=== PATIENT | female | born 1980 | race Caucasian/White ===

== ENCOUNTER → 2019-02-12 07:51 | Outpatient (CLI) | payer MEDICAID, SELFPAY ==
--- NOTE | 2019-02-12 07:53 | US_ITS ---
PROCEDURE: US GALLBLADDER CLINICAL INDICATION: abdominal pain Right upper quadrant pain with nausea and vomiting COMPARISON: No exams were available for comparison FINDINGS: Pancreas: Unremarkable/Not well seen Liver: Unremarkable. There is appropriate direction of blood flow within a non dilated portal vein. Right kidney: Unremarkable appearing. No hydronephrosis. Gallbladder: No stones are evident. There is no gallbladder wall thickening. Common duct is normal in diameter. There are few specular echoes within the gallbladder which may be due to some mild sludge. This is of questionable clinical significance. IMPRESSION: No gallstones apparent. Small amount of concentrated bile or sludge noted in the gallbladder. Questionable clinical significance Dictated by: Suleman Britt MD 02/12/2019 20:30 Electronically signed by Suleman Britt MD in [place] 02/12/2019 20:30
[2019-02-12 09:37] LABS: Basophils % 0.4 % (0.1-2.0); Eosinophils # 0.1 K/mm3 (0.0-0.4); Eosinophils % 1.3 % (0.1-12.0); Hematocrit 43.4 % (37.0-47.0); Hemoglobin 14.2 g/dL (12.2-16.2); Lymphocytes # 1.3 K/mm3 (0.7-4.5); Lymphocytes % 25.2 % (10-50); Mean Corpuscular HGB Conc 32.8 g/dL (31.8-35.4); Mean Corpuscular Hemoglobin 30.4 pg (27.0-31.2); Mean Corpuscular Volume 92.7 fl (81-99); Mean Platelet Volume 8.4 fl (7.4-10.4); Monocytes # 0.3 K/mm3 (0.1-1.0); Monocytes % 5.2 % (1.7-9.3); Neutrophils # 3.6 K/mm3 (1.8-7.8); Platelet Count 183 K/mm3 (142-424); Red Blood Count 4.68 M/mm3 (4.20-5.40); Red Cell Distribution Width 12.6 % (11.5-17.5); White Blood Count 5.3 K/mm3 (4.8-10.8)
[2019-02-12 10:22] LABS: Alanine Aminotransferase 28 U/L (12-78); Albumin/Globulin Ratio 1.3 (1.1-1.8); Alkaline Phosphatase 73 U/L (46-116); Amylase 69 U/L (25-115); Anion Gap 14.4 mEq/L (5-15); Aspartate Amino Transferase 26 U/L (15-37); Bilirubin,Total 0.5 mg/dL (0.2-1.0); Blood Urea Nitrogen 15 mg/dL (7-18); Calcium 9.3 mg/dL (8.5-10.1); Carbon Dioxide 27 mmol/L (21.0-32.0); Chloride 103 mmol/L (98-107); Creatinine,Serum 0.79 mg/dL (0.55-1.02); Estimated Glomerular Filt Rate 81 ml/min (>60); GFR (African American) 98 ML/MIN (>60); Glucose 103 mg/dL (74-106); Lipase 160 u/L (73-393); Potassium 4.4 mmoL/L (3.5-5.1); Sodium 140 mmol/L (136-145)
== END ==
PROVIDERS: PCP Internal Medicine Adolescent Medicine; Visit Provider Surgery
DX: K82.9 Disease of gallbladder, unspecified (principal)
CPT/HCPCS: 36415; 76705; 80053; 82150; 83690; 85025

== ENCOUNTER → 2019-02-12 08:48 | Outpatient (CLI) | payer MEDICAID, SELFPAY | PROVIDERS: Visit Provider Surgery | DX: R10.84 Generalized abdominal pain (principal) | CPT/HCPCS: 36415; 80053; 82150; 83690; 85025 ==

== ENCOUNTER → 2019-06-29 11:40 | Outpatient (CLI) | payer OTHER, SELFPAY ==
--- NOTE | 2019-06-29 11:50 | XR_ITS ---
PROCEDURE: XR CHEST 2V CLINICAL HISTORY: COUGH COMPARISON: No exams were available for comparison FINDINGS: The cardiomediastinal silhouette and pulmonary vascularity are within normal limits. The lungs are clear without infiltrates, suspicious nodules, or pleural effusions. There is calcified granuloma in the left upper lobe. No acute bony findings. IMPRESSION: No acute findings. Dictated by: Suleman Britt MD 06/29/2019 12:17 Electronically signed by Suleman Britt MD in [place] 06/29/2019 12:17
[2019-06-29 12:34] LABS: Anion Gap 13.2 mEq/L (5-15); Blood Urea Nitrogen 13 mg/dL (7-18); Calcium 8.8 mg/dL (8.5-10.1); Carbon Dioxide 29 mmol/L (21.0-32.0); Chloride 107 mmol/L (98-107); Creatinine,Serum 0.87 mg/dL (0.55-1.02); Estimated Glomerular Filt Rate 72 ml/min (>60); GFR (African American) 87 ML/MIN (>60); Glucose 93 mg/dL (74-106); Potassium 4.2 mmoL/L (3.5-5.1); Sodium 145 mmol/L (136-145)
[2019-06-29 12:47] LABS: Basophils % 0.5 % (0.1-2.0); Eosinophils # 0.5 K/mm3 (0.0-0.4); Eosinophils % 5.9 % (0.1-12.0); Hematocrit 42.4 % (37.0-47.0); Lymphocytes # 1.6 K/mm3 (0.7-4.5); Lymphocytes % 18.4 % (10-50); Mean Corpuscular Hemoglobin 29.7 pg (27.0-31.2); Mean Corpuscular Volume 89.9 fl (81-99); Monocytes # 0.4 K/mm3 (0.1-1.0); Monocytes % 4.8 % (1.7-9.3); Neutrophils # 6.2 K/mm3 (1.8-7.8); Neutrophils % 70.4 % (37.0-80.0); Platelet Count 213 K/mm3 (142-424); Red Blood Count 4.72 M/mm3 (4.20-5.40); Red Cell Distribution Width 13.5 % (11.5-17.5); White Blood Count 8.8 K/mm3 (4.8-10.8)
[2019-07-01 10:48] LABS: Immunoglobulin A, Qn 161 mg/dL (87-352)
[2019-07-03 11:27] LABS: Immunoglobulin E, Total 14 IU/mL (6-495)
== END ==
PROVIDERS: Visit Provider Nurse Practitioner Family
DX: R05 Cough (principal); J30.9 Allergic rhinitis, unspecified; J32.9 Chronic sinusitis, unspecified
CPT/HCPCS: 36415; 71046; 80048; 82784; 82785; 85025

== ENCOUNTER 2019-10-12 13:16 | Emergency (ER) | payer OTHER, SELFPAY ==
[2019-10-12 13:26] VITALS: BP 112/86; PULSE 66; RESP 18; TEMP 36.8; O2SAT 98; BMI 23.8
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
--- NOTE | 2019-10-12 13:32 | PC.NURSE ---
NOTIFIED RAD OF FOOT XRAY
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
[2019-10-12 14:05] VITALS: BP 112/86; PULSE 66; RESP 18; TEMP 36.8; O2SAT 98
== END 2019-10-12 14:06 | disposition home or self-care (01) ==
PROVIDERS: Emergency Provider Family Medicine; PCP Internal Medicine Adolescent Medicine
DX: S92.401A Displaced unspecified fracture of right great toe, initial encounter for closed fracture (principal); W22.8XXA Striking against or struck by other objects, initial encounter; Y92.89 Other specified places as the place of occurrence of the external cause
CPT/HCPCS: 73630; 99282

== ENCOUNTER → 2019-12-09 13:30 | Outpatient (CLI) | payer OTHER, SELFPAY ==
--- NOTE | 2019-12-09 13:36 | XR_ITS ---
PROCEDURE: XR FOOT LT MIN 3V CLINICAL INDICATION: Pain following injury COMPARISON: XR FOOT RT MIN 3V from 10/12/2019 FINDINGS: No fracture or dislocation. No lytic or blastic change. There is normal mineralization. The joint spaces are well-preserved. No significant degenerative/arthritic changes. No erosive changes evident. Other findings:None. IMPRESSION: No acute findings. Dictated by: Suleman Britt MD 12/09/2019 15:25 Electronically signed by Suleman Britt MD in [place] 12/09/2019 15:25
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
== END ==
PROVIDERS: PCP Nurse Practitioner Family; Visit Provider Nurse Practitioner Family
DX: M25.572 Pain in left ankle and joints of left foot (principal); G89.11 Acute pain due to trauma
CPT/HCPCS: 73610; 73630

== ENCOUNTER → 2020-03-19 12:23 | Outpatient (CLI) | payer OTHER, SELFPAY ==
[2020-03-19 14:05] LABS: Coronavirus 19 IgG Antibody Negative (Negative); Coronavirus 19 IgM Antibody Negative (Negative)
== END ==
PROVIDERS: Visit Provider Internal Medicine Gastroenterology
DX: Z01.818 Encounter for other preprocedural examination (principal); Z13.810 Encounter for screening for upper gastrointestinal disorder
CPT/HCPCS: 36415; 86328

== ENCOUNTER 2020-03-21 07:47 | Day surgery (SDC) | payer OTHER, SELFPAY ==
[2020-03-21] VITALS (7 sets, daily range): BP systolic 84–103; BP diastolic 46–65; PULSE 53–68; RESP 16–18; TEMP 36.5–36.8; O2SAT 97–100; BMI 23.6
[2020-03-21 08:05] LABS: Urine Pregnancy, HCG Qual. Negative (Negative)
--- NOTE | 2020-03-21 08:26 | HMH.ANESCL ---
[facility] Anesthesia Checklist - Patient Identification Patient Identification: Arm Band, Verbal (Name & ) - Structural Data Admitted From: Home Planned Operative Procedure/s: EGD and Colonoscopy Consent for Planned Operative Procedure(s) Verified: Yes Verified Documents: Surgical Consent, History and Physical - NPO Status Verified Time NPO: 00:00 - Chart Verification Results Verified: HCG - Additional verifications Patient : No Anesthesia Reactions: No - Airway Assessment C-Spine Mobility Assessed: Yes TMJ Mobility Assessed: Yes Dentition: Good Dentition (missing teeth) - Neurological Assessment Level of Consciousness: Awake, Alert, Appropriate, Follows Commands Hx Seizures: No Numbness or tingling in extremities: No - Anesthesia Plan Anesthesia Risk discussed: Yes Anesthesia Plan: Verified ASA Class: II Anesthesia Type: MAC [facility] History I have reviewed the patient's past medical history: Yes Medical History: Reports:: Anxiety Denies:: Cancer, Diabetes Mellitus Type 1, Diabetes Mellitus Type 2, Internal Pacemaker, MRSA, Seizures *Have you ever received a pneumonia vaccine?: No *Have you received a flu vaccine this season?: Yes Anesthesia experience/problems:: No prior complications Other Surgeries: Yes: Other (lumbar sx). No: Pacemaker Amputation: No Fractures: No - *Social History Last grade of school completed: High school graduate Smoking Status: Never smoker Alcohol Intake: current Alcohol Intake Frequency:: a few times a week Substance Use Type: denies use *Occupational Status:: employed Housing: house Household Members: children *Travel in the last 8 weeks: None Family Hx:: Cancer
--- NOTE | 2020-03-21 08:31 | HMH.PROC ---
[facility] Procedure Note Procedure Note:: Upper Endoscopy Procedure Report: Esophagogastroduodenoscopy with cold biopsies Endoscopost: Saw Bianchi II, MD Referring Physician: Ranjith Ohara M.D./Sven Thomson M.D. Date of Procedure: March 21, 2020 Equipment: Olympus GIF 180 standard upper endoscope Sedation: MAC sedation Indications: Mrs. Dugan is a 40-year-old female with nausea and dyspepsia. She has epigastric and some generalized abdominal pain and discomfort. She reports bloating, belching and early satiety. She has had digestive difficulties with dyspepsia for most of her life. 17 years ago she did have an upper endoscopy followed by a HIDA scan. She was told that she had a nonfunctioning gallbladder but nothing was done at that time. She does state that her paternal aunt had stomach cancer. The patient does get some intermittent right upper quadrant abdominal pain. She reports no significant heartburn, reflux, globus or dysphagia. She does report alternating IBS with both constipation followed by diarrhea. She did have a recent ultrasound showing some gallbladder sludge and steatosis. Procedure: Prior to the procedure, a history and physical exam was performed, and patient's medications and allergies were reviewed. The risks, benefits and alternatives of the sedation and procedure were discussed with the patient. All questions were answered and informed consent was obtained. The patient was brought to the procedure room. Patient identification and proposed procedure were verified by the physician and the nurse. The patient was placed in a left lateral decubitus position and the scope was passed under direct vision. Throughout the procedure, the patient's blood pressure, pulse, and oxygen saturations were monitored continuously. The upper GI endoscopy was accomplished without difficulty. The patient tolerated the procedure well. Findings: The scope was passed directly into the upper esophagus and advanced to the third portion of the duodenum. The post bulbar duodenum and duodenal bulb were normal with normal mucosa and conniventes. Cold biopsies were taken from the post bulbar duodenum to rule out celiac disease. The scope was withdrawn through a normal duodenal bulb and pylorus into the stomach. There was some linear erythema of the antrum and body consistent with reactive gastropathy. The remainder of the antrum, body and fundus of the stomach were grossly normal. Upon retroflexion there was a 2 cm hiatal hernia. 2 biopsies were taken in the antrum and along the lesser curvature for histology to rule out gastritis and/or H pylori. The scope was then withdrawn into the esophagus. There was no evidence of reflux esophagitis. There was a single tongue of salmon-colored mucosa that was biopsied to rule out intestinal metaplasia. There were some tertiary contractions and mild esophageal dysmotility. The remainder of the esophageal mucosa was normal. Impression: 1. Nonerosive GERD with mild esophageal dysmotility and small 2 cm hiatal hernia 2. Linear reactive gastropathy Plan: I will follow-up the biopsies. The patient does have functional dyspepsia and functional bowel disease. This is associated with her alternating IBS with visceral sensitivity. We will discuss additional dietary measures and treatment options. I will proceed with diagnostic colonoscopy.
--- NOTE | 2020-03-21 08:58 | HMH.PROC ---
[facility] Procedure Note Procedure Note:: Colonoscopy Procedure Report: Colonoscopy Endoscopist: Saw Bianchi II, MD Referring physician: Ranjith Ohara MD/Sven Thomson M.D. Date of Procedure: March 21, 2020 Equipment: Olympus 180 variable stiffness pediatric colonoscope Sedation: MAC sedation Indication: Mrs. Dugan is a 40-year-old female with nausea and dyspepsia. She has had bowel irregularity with constipation alternating with diarrhea. She also reports some bright red blood on the toilet tissue when wiping that occurs several days of the month. She does report some generalized abdominal pain and discomfort and this has been longstanding. She also states that her paternal grandfather had colon cancer and possibly colitis. She reports no weight loss. This is her first colonoscopy. Procedure: Prior to the procedure, a history and physical exam was performed, and patient's medications and allergies were reviewed. The risks, benefits and alternatives of the sedation and procedure were discussed with the patient. All questions were answered and informed consent was obtained. The patient was brought to the procedure room. Patient identification and proposed procedure were verified by the physician and the nurse. The patient was placed in a left lateral decubitus position and the scope was passed under direct vision. Throughout the procedure, the patient's blood pressure, pulse, and oxygen saturations were monitored continuously. The colonoscopy was accomplished without difficulty. The patient tolerated the procedure well. Findings: On digital rectal examination there was normal rectal tone. There were no external hemorrhoids. The colonoscope was introduced through the anal canal to the rectum and advanced to the cecum. The ileocecal valve and appendiceal orifice were identified. The scope was advanced a short distance into the ileum which appeared grossly normal. The scope was then withdrawn into the colon. There was some colonic tortuosity/redundancy consistent with some colonic dysmotility. The cecum, ascending, transverse, descending, sigmoid and rectum were otherwise grossly normal. There were no mucosal abnormalities identified. Upon retroflexion within the rectum there were grade 1 internal hemorrhoids.The preparation was excellent throughout with [place] Preparation Score of 9. The cecal time was 12 minutes. Impression: 1. Normal colonoscopy with intubation of the terminal ileum 2. Grade 1 internal hemorrhoids Plan: The patient does have IBS/functional intestinal disorder. I do suspect that she may have some hepatic flexure syndrome causing some of her right upper quadrant abdominal discomfort. I would strongly encourage dietary measures and fiber bowel regimen. I am going to have her do C 13 sucrose breath testing. We will discuss additional treatment options. The patient will not require screening/surveillance colonoscopy again for 10 years.
== END 2020-03-21 10:00 | disposition home or self-care (01) ==
LOC: OUTP 07:49
PROVIDERS: PCP Internal Medicine Adolescent Medicine; Visit Provider Internal Medicine Gastroenterology
PROC: 0DJ08ZZ Inspection of Upper Intestinal Tract, Via Natural or Artificial Opening Endoscopic (ICD-10-PCS; CPT 43235; principal; 2020-03-21 09:00)
DX: K64.0 First degree hemorrhoids; K21.9 Gastro-esophageal reflux disease without esophagitis; K22.4 Dyskinesia of esophagus; K31.9 Disease of stomach and duodenum, unspecified; K44.9 Diaphragmatic hernia without obstruction or gangrene; F41.9 Anxiety disorder, unspecified; Z79.899 Other long term (current) drug therapy
CPT/HCPCS: 43239; 45378; 81025

== ENCOUNTER 2020-03-26 11:19 | Emergency (ER) | payer OTHER, SELFPAY ==
[2020-03-26 11:45] VITALS: BP 120/64; PULSE 71; RESP 20; O2SAT 100; BMI 23.6
--- NOTE | 2020-03-26 11:57 | HMH.EDUTC ---
[facility] [place] Disposition Clinical Impression: Exposure to COVID-19 virus Pharyngitis Qualifiers: Pharyngitis/tonsillitis etiology: unspecified etiology Qualified Code(s): J02.9 - Acute pharyngitis, unspecified Disposition: Home, Self-Care Condition on Discharge: Good Instructions: Preventing the Spread of Coronavirus Discharge Instructions Additional Instructions: Drink plenty of fluids. Take tylenol for pain or fever. Take the medications as directed. Follow up with your regular doctor. GO TO THE ER FOR ANY WORSENING SYMPTOMS FOLLOW THE DIRECTIONS ON THE COVID-19 HAND OUT THAT WE GAVE YOU REGARDING SELF-ISOLATION UNTIL YOU KNOW YOUR COVID-19 RESULTS Prescriptions: Ondansetron [Zofran 4mg ODT] 4 mg PO Q8HP PRN #10 tab.rapdis PRN Reason: Nausea Transmission Status: Received by [facility] Azithromycin [Z-Jovanyn 250mg Tab*] 250 mg PO UD DOSE PK #6 tab Transmission Status: Received by [facility] Referrals: Sven Thomson MD [Primary Care Provider] - Time of Disposition: 12:06 Medical Decision Making - Medical Records Medical records reviewed: No: I reviewed the patient's medical records. - Ranulfo Inquiry Pt receiving controlled substance: No Vital Signs: 03/26/20 11:45 03/26/20 12:09 Temperature 98.1 F Pulse Rate 71 Pulse Rate [Right Brachial] 71 Respiratory Rate 20 20 Blood Pressure 120/64 Blood Pressure [Right Arm] 120/64 Blood Pressure Mean [Right Arm] 82 Blood Pressure Source [Right Arm] Automatic Cuff Blood Pressure Position [Right Arm] Sitting 02 Sat by Pulse Oximetry 100 Oxygen Delivery Method Room Air Orders (Tests/Meds): ORDERS Category Date Time Status Covid-19 Nasal PCR ([facility]) Routine Lab 03/26/20 11:35 Received [facility] [place] HPI - General Stated complaint: exposure to covid Time Seen by Provider: 03/26/20 11:57 - History of Present Illness Provider Complaint: She states that she was around her nlqzst-aj-fav for a couple of hours 2 days ago and her bcnmey-qx-ety tested positive for covid yesterday. The patient also c/o a mild sore throat and sinus congestion. - Related Data Home Medications Medication Instructions Recorded Confirmed sertraline 25 mg tablet 25 mg PO DAILY 02/10/19 03/16/20 Lactobacillus Combo No.10 1 each PO DAILY 03/16/20 03/16/20 [Probiotic] Previous Rx's Medication Instructions Recorded Azithromycin [Z-Jovanny 250mg Tab*] 250 mg PO UD DOSE PK #6 tab 03/26/20 Ondansetron [Zofran 4mg ODT] 4 mg PO Q8HP PRN #10 tab.rapdis 03/26/20 Allergies Allergy/AdvReac Type Severity Reaction Status Date / Time No Known Allergies Allergy Verified 03/16/20 12:22 [facility] History - Hepatitis A Screen Attestation statement:: This patient has been screened for Hepatitis A risk factors. I have reviewed the patient's past medical history: Yes Medical History: Reports:: Anxiety Denies:: Cancer, Diabetes Mellitus Type 1, Diabetes Mellitus Type 2, Internal Pacemaker, MRSA, Seizures Other Surgeries: Yes: No Previous Surgery, Other (lumbar sx). No: Pacemaker Amputation: No Fractures: No - Social History Smoking Status: Never smoker Alcohol Intake: current Alcohol Intake Frequency:: a few times a week Substance Use Type: denies use Occupational Status: employed Housing: house Household Members: children - Psychiatric History Pschychiatric History:: Reports:: Anxiety Family Hx:: Cancer ROS Obtained: Yes All systems reviewed & no additional complaints - Constitutional Constitutional: Denies chills, Denies fever(s), Reports poor appetite, Denies malaise - Eyes Eyes: Denies eye discharge - ENT Ears, Nose, Mouth, and Throat: Reports as per HPI - Cardiovascular Cardiovascular: Denies chest pain - Respiratory Respiratory: No chest congestion, Yes cough Physical Exam - General General appearance: alert, in no apparent distress - Head Head exam: atraumatic, normocephalic, normal inspectio
[2020-03-26 12:09] VITALS: BP 120/64; PULSE 71; RESP 20; TEMP 36.7; O2SAT 100
[2020-03-29 13:30] LABS: UTC Strep Screen (Rapid) Negative (Negative)
== END 2020-03-26 12:14 | disposition home or self-care (01) ==
PROVIDERS: Emergency Provider Nurse Practitioner Family; PCP Internal Medicine Adolescent Medicine
DX: Z20.828 Contact with and (suspected) exposure to other viral communicable diseases (principal)
CPT/HCPCS: 87880; 99202; U0003

== ENCOUNTER → 2020-04-04 15:46 | Outpatient (CLI) | payer OTHER, SELFPAY ==
[2020-04-04 16:08] LABS: Basophils % 0.6 % (0.1-2.0); Eosinophils # 0.1 K/mm3 (0.0-0.4); Eosinophils % 2.2 % (0.1-12.0); Hemoglobin 14.7 g/dL (12.2-16.2); Lymphocytes # 2.1 K/mm3 (0.7-4.5); Lymphocytes % 34.8 % (10-50); Mean Corpuscular HGB Conc 33.5 g/dL (31.8-35.4); Mean Corpuscular Hemoglobin 30.8 pg (27.0-31.2); Mean Corpuscular Volume 91.9 fl (81-99); Mean Platelet Volume 8.9 fl (7.4-10.4); Monocytes # 0.3 K/mm3 (0.1-1.0); Monocytes % 4.3 % (1.7-9.3); Neutrophils # 3.5 K/mm3 (1.8-7.8); Neutrophils % 58.2 % (37.0-80.0); Platelet Count 237 K/mm3 (142-424); Red Blood Count 4.79 M/mm3 (4.20-5.40); Red Cell Distribution Width 12.7 % (11.5-17.5)
[2020-04-04 16:32] LABS: Chloride 102 mmol/L (98-107); Potassium 3.6 mmoL/L (3.5-5.1); Sodium 139 mmol/L (136-145)
[2020-04-04 16:34] LABS: Alanine Aminotransferase 18 U/L (12-78); Amylase 70 U/L (30-110); Aspartate Amino Transferase 36 U/L (14-36); Blood Urea Nitrogen 13 mg/dl (7-17); Estimated Glomerular Filt Rate 69 ml/min (>60); GFR (African American) 83 ML/MIN (>60)
[2020-04-04 16:35] LABS: Albumin/Globulin Ratio 1.9 (1.1-1.8); Alkaline Phosphatase 77 U/L (38-126); Anion Gap 13.6 mEq/L (5-15); Bilirubin,Total 0.3 mg/dl (0.2-1.3); Calcium 9.9 mg/dl (8.4-10.2); Carbon Dioxide 27 mmol/L (22.0-30.0); Globulin 2.7 g/dL (1.3-3.2); Glucose 89 mg/dl (74-100); Iron 93 ug/dL (37-170); Lipase 97 U/L (23-300); Total Protein,Serum 7.7 g/dl (6.3-8.2)
[2020-04-04 16:44] LABS: Total Iron Binding Capacity 443 ug/dL (265-497)
[2020-04-04 16:53] LABS: 25-OH Vitamin D, Total 71.1 ng/mL (30-100)
[2020-04-04 17:24] LABS: Vitamin B12 534 pg/mL (239-931)
[2020-04-06 21:19] LABS: Deamidated Gliadin Abs, IgA 4 units (0-19); Deamidated Gliadin Abs, IgG 2 units (0-19); Endomysial IgA Antibody Negative (Negative); Tissue Transglutaminase IgA Ab <2 U/mL (0-3); Tissue Transglutaminase IgG Ab <2 U/mL (0-5)
[2020-04-07 11:46] LABS: Reticulin IgA Antibody Negative titer (Neg:<1:2.5)
== END ==
PROVIDERS: Visit Provider Internal Medicine Gastroenterology
DX: K59.00 Constipation, unspecified (principal); R10.9 Unspecified abdominal pain
CPT/HCPCS: 36415; 80053; 82150; 82306; 82607; 82728; 83516; 83540; 83550; 83690; 85025; 86255; 86256

== ENCOUNTER 2020-08-10 11:00 | Outpatient (RCR) | payer OTHER, SELFPAY ==
--- NOTE | 2020-07-21 10:45 | HMH.PTOPEV ---
PT Outpatient Evaluation Rehab PT Outpatient Evaluation Start: 07/21/20 10:17 Freq: Status: Active Protocol: Document 07/21/20 10:17 KYLER (Rec: 07/21/20 10:44 [email or web address] [id number]) Electronically Signed By Kulwinder Freire, SWATI 07/21/20 10:17 Outpatient Therapy Subjective History Subjective History Pt. is a 40 year old female who presents to Outpatient PT clinic w/ complaints of chronic and constant R-sided cervical/ shldr. P! of traumatic onset 8 years ago after falling off of a horse. Pt. described symptoms as intermittent post trauma, but currently states it has been constant for 1 year now. Pt. currently reports symptoms as an intermittent ache/tingling/ numbness into her RUE, but a constant sharpness in the RUE shldr. Pt. reports symptoms worsen w/ looking down, sweeping, mopping, and scrubbing. Pt. reports some symptom relief w/ MHP and 800mg Ibuprofen. Pt. denies having recent diagnostic imaging nor injections for current pathology. 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 Pt . RTMD in 4 wks. Current medications include Diclofenac and 800mg Ibuprofen. PMH includes BUE Carpal Tunnel, BUE tennis elbow, and L4/L5 discectomy. Chief Complaint Pain,Stiff,Paresthesia, Weakness Symptom Type Ache,Sharp,Burning,Numbness, Tingling Symptoms Relieved By Rest/Positioning,Heat,OTC Meds ,Prescription Meds Symptoms Aggravated By Physical Activity,Twisting, Lifting Prior Functional Limitations None Current Functional Limitations Reaching,Lifting,Housework, Dressing,Desk Work/Reading, Sleeping,Recreation Activity Symptom Description Constant and Continuous, C
== END 2020-08-31 08:34 | disposition home or self-care (01) ==
LOC: PT.CARL 11:00
PROVIDERS: PCP Internal Medicine Adolescent Medicine; Visit Provider Nurse Practitioner Family
DX: M54.2 Cervicalgia; M25.511 Pain in right shoulder
CPT/HCPCS: 20560; 20561; 97010; 97012; 97014; 97110; 97140; 97163; G0283

== ENCOUNTER → 2021-03-13 11:03 | Outpatient (CLI) | payer OTHER, SELFPAY ==
[2021-03-13 11:57] LABS: Erythrocyte Sedimentation Rate 6 mm/hr (0-20)
[2021-03-13 12:55] LABS: Alanine Aminotransferase 18 U/L (12-78); Albumin Level 4.5 g/dl (3.5-5.0); Albumin/Globulin Ratio 1.7 (1.1-1.8); Alkaline Phosphatase 66 U/L (38-126); Anion Gap 10.5 mEq/L (5-15); Aspartate Amino Transferase 31 U/L (14-36); Bilirubin,Total 0.3 mg/dl (0.2-1.3); Blood Urea Nitrogen 12 mg/dl (7-17); Calcium 9.5 mg/dl (8.4-10.2); Carbon Dioxide 29 mmol/L (22.0-30.0); Chloride 104 mmol/L (98-107); Chol/HDL Ratio 2.8 (1-3.5); Cholesterol 206 mg/dl (140-200); Estimated Glomerular Filt Rate 110 ml/min (>60); GFR (African American) 133 ML/MIN (>60); Globulin 2.6 g/dL (1.3-3.2); Glucose 112 mg/dl (74-100); HDL Cholesterol 74 mg/dl (40-60); Potassium 4.5 mmoL/L (3.5-5.1); Sodium 139 mmol/L (136-145); Total Protein,Serum 7.1 g/dl (6.3-8.2); Triglycerides 124 mg/dl (30-150); VLDL Cholesterol 25 mg/dL (0-40)
[2021-03-13 13:06] LABS: C-Reactive Protein 0.6 mg/L (0-4); Direct LDL Cholesterol 101.28 mg/dL (100-129)
[2021-03-13 13:27] LABS: Thyroid Stimulating Hormone 0.88 uIU/mL (0.465-4.68)
== END ==
PROVIDERS: Visit Provider Nurse Practitioner Family
DX: Z00.00 Encounter for general adult medical examination without abnormal findings (principal); M25.50 Pain in unspecified joint; M25.40 Effusion, unspecified joint
CPT/HCPCS: 36415; 80053; 80061; 84443; 85651; 86140

== ENCOUNTER 2021-05-08 11:28 | Emergency (ER) | payer OTHER, SELFPAY ==
[2021-05-08 11:28] VITALS: BP 103/58; PULSE 71; RESP 18; TEMP 37; O2SAT 98; BMI 23.6
--- NOTE | 2021-05-08 11:40 | XR_ITS ---
PROCEDURE: XR KNEE RT 3V CLINICAL INDICATION: right knee pain COMPARISON: No exams were available for comparison FINDINGS: No fracture or dislocation. No lytic or blastic change. There is normal mineralization. No significant degenerative change. Other findings:None. IMPRESSION: No acute findings. Dictated by: Suleman Britt MD 05/08/2021 12:59 Suleman Britt MD in [place] 05/08/2021 12:59
--- NOTE | 2021-05-08 11:43 | HMH.EDGENADL ---
ED Disposition Clinical Impression: Knee pain, right Qualifiers: Chronicity: acute Qualified Code(s): M25.561 - Pain in right knee Disposition: Home, Self-Care Condition on Discharge: Good Additional Instructions: Follow up with your PCP for any persisting symptoms and evaluation for outpatient MRI. Take Tylenol, Motrin as needed for pain. Okay to ice knee, wear knee immobilizer, use crutches, weightbearing as tolerated. Return to ED with new or worsening symptoms. Referrals: Sven Thomson MD [Primary Care Provider] - - Critical Care Critical Care Time: No Attestation: On 05/08/21, the high probability of a clinically significant, sudden or life threatening deterioration of the following system(s) required my full and direct attention, intervention and personal management. The time I documented below is in addition to time spent performing reported procedures but includes the following listed in this critical care notation. Medical Decision Making - Medical Records Medical records reviewed: Yes: I reviewed the patient's medical records. - Ranulfo Inquiry Pt receiving controlled substance: No Vital Signs: 05/08/21 11:28 Temperature 98.6 F Temperature Source Oral Pulse Rate [Left Radial] 71 Respiratory Rate 18 Blood Pressure [Right Arm] 103/58 L Blood Pressure Mean [Right Arm] 73 Blood Pressure Source [Right Arm] Automatic Cuff Blood Pressure Position [Right Arm] Sitting 02 Sat by Pulse Oximetry 98 Oxygen Delivery Method Room Air Orders (Tests/Meds): ED MEDICATIONS Discontinued Medications Generic Name Dose Route Start Last Admin Trade Name Freq PRN Reason Stop Dose Admin Acetaminophen 1,000 mg 05/08/21 11:41 05/08/21 11:55 Acetaminophen 500mg Tab PO 05/08/21 11:42 1,000 mg ONCE ONE Administration - Radiology Data #1 Image(s): Knee Image Reviewed: Yes I reviewed the patient's radiology results, Yes I reviewed the patient's radiology image, Yes I have reviewed radiologist's interpretation Preliminary Findings: Normal/NAD, No Fracture Seen No acute fracture or dislocation, normal exam - Reevaluation(s) Reevaluation #1: ambulated to bathroom, able to bear weight on right leg Medical Decision Narrative: 41-year-old female past medical history of anxiety presenting with right knee pain after bending down last night and hearing a pop in the knee. Differential diagnoses include patellar dislocation, musculoskeletal strain, ligamentous injury, fracture, hamstring injury. Given this work-up included physical exam, x-ray of the right knee. Vital signs currently stable, labs not currently indicated. Gave 1 g of oral Tylenol for pain. Clinically low suspicion for infection, DVT given recent traumatic episode where pain occurred. Did not appreciate knee effusion, there is minimal tenderness to the posterior aspect of her right knee. Palpable DP/PT pulses in both legs, no overlying erythema. X-ray right knee negative for acute fracture or dislocation. Patient ambulated to bathroom unassisted, able to bear weight on right leg. This point she is okay for discharge, provided Robert wrap, crutches. Instructed patient to apply ice for worsening swelling, follow-up with her primary care physician for evaluation for outpatient MRI if symptoms persist. Ok to take Tylenol, Motrin for pain, return with new or worsening symptoms. General Adult HPI - General Chief complaint: Extremity Injury, Lower Stated complaint: right knee pain, no accident Time Seen by Provider: 05/08/21 11:44 Mode of Arrival: Wheelchair Source of Information: Patient Limitations: No Limitations - History of Present Illness HPI narrative: 41-year-old female with relatively no past medical history presenting with right knee pain. Patient states that she was with her daughter last night when she bent down and experienced pain over the posterior aspect of her right knee. She believes that she did feel a pop when
[2021-05-08 13:39] VITALS: BP 105/60; PULSE 74; RESP 20; TEMP 37; O2SAT 99
== END 2021-05-08 13:40 | disposition home or self-care (01) ==
PROVIDERS: Emergency Provider Emergency Medicine; PCP Internal Medicine Adolescent Medicine
DX: M25.561 Pain in right knee (principal); F41.9 Anxiety disorder, unspecified
CPT/HCPCS: 73562; 99282

== ENCOUNTER 2021-07-13 16:00 | Outpatient (RCR) | payer OTHER, SELFPAY ==
--- NOTE | 2021-06-27 11:41 | HMH.PTOPEV ---
PT Outpatient Evaluation Rehab PT Outpatient Evaluation Start: 06/26/21 16:26 Freq: Status: Active Protocol: Document 06/26/21 16:26 PDESEROUX (Rec: 06/26/21 17:36 PDESEROUX [id number]) Electronically Signed By Kulwinder Freire, SWATI 06/26/21 16:26 Outpatient Therapy Subjective History Subjective History Pt. is a 41 year old female who presents to [facility] Outpatient Physical Therapy Clinic for the initial evaluation this date(06/26/21) w/ c/o subacute and intermittent RLE knee P!, edema, and tightness of traumatic onset since 05/07/21 . Pt. reports not being able to stand up from a deep squat position on 05/07/21. Pt. reports when she finally was able to stand she felt a pop in her knee during the transition. Pt. reports immediate weight-bearing restrictions, tightness, and pressure after injury. Recent diagnostic imaging( radiograph) negative for a fracture per pt. report. Pt. also denies having injections for current pathology. Pt. RTMD in 1 month. Pt. reports having symptom relief w/ rest, ice, and elevation, but also w/ prescribed Mobic. However, pt. reports having rash-like symptoms possibly from the Mobic. Therefore, Physical Therapist instructed pt. to contact MD for further assessment on this matter, pt. vocalized understanding. Current medications include Mobic and Diclofenac. PMH includes BUE Carpal Tunnel, BUE tennis elbow, and L4/L5 discectomy. Chief Complaint Pain,Stiff,Swelling,Gives out/ Unstable,Weakness Symptom Type Ache,Throb,Dull,Stabbing, Burning Symptoms Relieved By Rest/Positioning,Ice,Brace/ Support,Prescription Meds Symptoms Aggravated By
== END 2021-08-02 10:09 | disposition home or self-care (01) ==
LOC: PT.CARL 16:00
PROVIDERS: PCP Internal Medicine Adolescent Medicine; Visit Provider Nurse Practitioner Family
DX: M25.561 Pain in right knee (principal)
CPT/HCPCS: 97010; 97014; 97110; 97163; G0283

== ENCOUNTER 2022-03-06 09:07 | Emergency (ER) | payer OTHER, SELFPAY ==
[2022-03-06 09:09] VITALS: BP 125/86; PULSE 77; RESP 16; TEMP 36.6; O2SAT 98; BMI 23.8
--- NOTE | 2022-03-06 09:36 | XR_ITS ---
FINAL REPORT CLINICAL HISTORY: injury FINDINGS: RIGHT ANKLE: Three views of the right ankle were obtained. There is no acute fracture or dislocation. The joint spaces and mortise are intact. There is no soft tissue abnormality. IMPRESSION: No acute process. Reviewed, Interpreted and Dictated by Bob Valdez III, MD Transcribed by Lucho Hercules Authenticated and [facility]
--- NOTE | 2022-03-06 09:36 | XR_ITS ---
FINAL REPORT CLINICAL HISTORY: injury COMPARISON: October 12, 2019 FINDINGS: 3 views of the right foot were obtained. There is no acute fracture or dislocation. The joint spaces are intact. The soft tissues are unremarkable. IMPRESSION: No acute process. Reviewed, Interpreted and Dictated by Bob Valdez III, MD Transcribed by Lucho Hercules Authenticated and . [facility]
--- NOTE | 2022-03-06 09:36 | XR_ITS ---
FINAL REPORT CLINICAL HISTORY: injury COMPARISON: December 09, 2019 FINDINGS: 3 views of the left foot were obtained. There is no acute fracture or dislocation. The joint spaces are intact. The soft tissues are unremarkable. IMPRESSION: No acute process. Reviewed, Interpreted and Dictated by Bob Valdez III, MD Transcribed by Lucho Hercules Authenticated and [facility]
[2022-03-06 09:41] VITALS: BP 120/86; PULSE 77; RESP 16; TEMP 36.7; O2SAT 98; BMI 24.2
--- NOTE | 2022-03-06 09:48 | EXP.UTC ---
Discharge Plan Disposition Patient Disposition: Home, Self-Care Condition: Good Prescriptions Prescriptions: New ibuprofen [ibuprofen] 600 mg tablet 600 mg PO Q6HP PRN (Reason: Mild Pain) Qty: 30 0RF No Action atomoxetine [Strattera] 25 mg capsule 25 mg PO DAILY Qty: 30 1RF sertraline [Zoloft] 50 mg tablet 50 mg PO DAILY Qty: 30 1RF lactobacillus comb no.10 1 EACH capsule 1 each PO DAILY Referrals Follow up/Referrals: Jah Truong MD [Primary Care Provider] - See instructions Ayala Negro DPM [Staff Physician] - See instructions Activity Restrictions/Add. Instructions Additional Instructions/Restrictions: Rest the extremity, apply ice for 15 minutes as tolerated three or four times per day, Wear the gracia wrap for compression, Elevate the extremity as tolerated while you are resting. Take ibuprofen for pain. I sent in a prescription to your pharmacy. Follow up with Dr. Negro (podiatry). Sometimes there can be fractures that don't show up well on the first set of x-rays. I put in a referral but you need to call her office and schedule an appointment. Follow up with your regular doctor. GO TO THE ER FOR ANY WORSENING SYMPTOMS Clinical Impressions Clinical Impression: Contusion of foot, left, Sprain of foot, left, Left ankle sprain Discharge ED Provider: Martín Velásquez [facility] General Stated complaint: AO 03/05@[email or web address]@1900 Pain in Rt ankle Mode of Arrival: Ambulatory Source of Information: Patient Limitations: Physical Limitations Time Seen by Provider: 03/06/22 09:47 HEENT Symptoms (Recalled from RN notes): No Resp Symptoms (Recalled from RN notes): No Skin Symptoms (Recalled from RN notes): No MS Symptoms (Recalled from RN notes): Yes Functional Status (Recalled from RN notes): n/a History of Present Illness Provider Complaint: She is here with c/o right ankle and foot pain. She states she was doing flips with her daughters and landed on her foot wrong. This accident occurred yesterday. She also has tenderness and bruising of her left 2nd toe. Related Data Home Medications Medication Instructions Recorded Confirmed lactobacillus comb no.10 20 1 each PO DAILY Supplement 03/16/20 08/18/21 billion cell capsule Previous Rx's Medication Instructions Recorded atomoxetine 25 mg capsule 25 mg PO DAILY #30 caps 02/19/22 (Strattera) sertraline 50 mg tablet (Zoloft) 50 mg PO DAILY #30 tabs 02/19/22 ibuprofen 600 mg tablet 600 mg PO Q6HP PRN Mild Pain #30 03/06/22 tabs Allergies Allergy/AdvReac Type Severity Reaction Status Date / Time No Known Allergies Allergy Verified 02/19/22 09:59 Worker's Comp Is this a Worker's Comp case?: No PFSH PFSH Social History Smoking Status: Never smoker second hand exposure: No alcohol intake: current substance use type: denies use current occupational status: other Travel in the last 8 weeks: None household members: children housing: house current occupation: [employer] current occupational exposures/hazards: No caffeine: No ROS Obtained: Yes All systems reviewed & no additional complaints except as documented Constitutional Constitutional: Denies chills and Denies fever(s) Integumentary/Breasts Skin/Breast: Denies redness, Denies rash and Denies wounds Neurologic Neurologic: Denies paresthesias Physical Exam General General appearance: alert and in no apparent distress Head Head exam: atraumatic, normocephalic and normal inspection Eye Eye exam: Present normal appearance, PERRL and EOMI ENT ENT exam: Present normal exam, normal oropharynx, mucous membranes moist, TM's normal bilaterally and normal external ear exam Neck Neck exam: Present normal inspection, full ROM and trachea midline; Absent meningismus or lymphadenopathy Chest Chest inspection: Present normal inspection and symmetric chest wall rise; Absent tenderness Respi
[2022-03-06 11:21] VITALS: BP 120/86; PULSE 77; RESP 16; TEMP 36.7
== END 2022-03-06 11:22 | disposition home or self-care (01) ==
PROVIDERS: Emergency Provider Nurse Practitioner Family; PCP Family Medicine
DX: S90.32XA Contusion of left foot, initial encounter (principal); S93.602A Unspecified sprain of left foot, initial encounter; S93.402A Sprain of unspecified ligament of left ankle, initial encounter; Y93.43 Activity, gymnastics
CPT/HCPCS: 73610; 73630; 99213; G0463

== ENCOUNTER → 2022-04-10 10:20 | Outpatient (CLI) | payer OTHER, SELFPAY | PROVIDERS: PCP Family Medicine; Visit Provider Family Medicine | DX: R30.0 Dysuria (principal); B96.29 Other Escherichia coli [E. coli] as the cause of diseases classified elsewhere | CPT/HCPCS: 87086; 87088; 87186 ==

== ENCOUNTER → 2022-07-18 08:18 | Outpatient (CLI) | payer OTHER, SELFPAY ==
--- NOTE | 2022-07-18 08:25 | US_ITS ---
FINAL REPORT TECHNIQUE: Sonographic images of the right upper quadrant were obtained. CLINICAL HISTORY: ABD PAIN,NAUSEA FINDINGS: The liver is homogeneous. There is no focal hepatic lesion or intrahepatic biliary dilatation. The gallbladder is well filled. There are no gallstones. There is no pericholecystic fluid collection or gallbladder wall thickening. The common duct measures 1-2 mm which is within normal limits. The pancreatic tail is partially obscured by bowel gas. Otherwise, it has a normal appearance. The right kidney measures 8.2 cm in [id number] length. There is no hydronephrosis, mass, or stone. There is no right upper quadrant ascites. IMPRESSION: Unremarkable right upper quadrant ultrasound. No gallstones, pericholecystic fluid collection, or gallbladder wall thickening. Reviewed, Interpreted and Dictated by Mellisa Villafana MD Transcribed by Kirstin Gan Authenticated and . [facility]
== END ==
PROVIDERS: PCP Family Medicine; Visit Provider Nurse Practitioner Family
DX: R10.11 Right upper quadrant pain (principal); R11.0 Nausea
CPT/HCPCS: 76705

== ENCOUNTER → 2022-08-06 07:37 | Outpatient (CLI) | payer OTHER, SELFPAY ==
--- NOTE | 2022-08-06 07:43 | FL_ITS ---
FINAL REPORT CLINICAL HISTORY: altered bowel function, nausea, IBS 1:18 fluoro time FINDINGS: SMALL BOWEL FOLLOW THROUGH HISTORY: Nausea and altered bowel function. PROCEDURE: The patient ingested barium. Spot and overhead films were obtained. 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 The transit time to the colon is normal. The mucosal fold pattern is normal. Spot images of the terminal ileum are unremarkable. FLUOROSCOPY TIME: 1.18 minutes IMPRESSION: Normal small bowel follow-through. Films reviewed , interpreted and dictated by Dr. Valdez Transcribed by Ozzy Spencer PA-C. Reviewed, Interpreted and Dictated by Bob Valdez III, MD Transcribed by BUBBA Álvarez Authenticated and [facility]
== END ==
PROVIDERS: PCP Family Medicine; Visit Provider Nurse Practitioner Family
DX: R19.4 Change in bowel habit (principal); K58.2 Mixed irritable bowel syndrome; R11.0 Nausea
CPT/HCPCS: 74250

== ENCOUNTER → 2022-08-16 10:08 | Outpatient (CLI) | payer OTHER, SELFPAY ==
--- NOTE | 2022-08-16 10:14 | NM_ITS ---
FINAL REPORT CLINICAL HISTORY: ABD PAIN,NAUSEA..neg u/s for gb stones 07/18/22 10:25 am 8.73 mci tc choletec 11:31 am 1.1 mcg of cck injected into rt ant pain with cck FINDINGS: Sequential anterior projection images of the abdomen were obtained after the intravenous injection of 8.73 mCi technetium 99m Choletec. There is normal uptake of radiotracer by the liver. The bile ducts are visualized by 5 minutes. Gallbladder activity is seen by 10 minutes. Bowel activity is noted by 10 minutes. After 1 hour, 1.1 ?g of CCK was injected intravenously for calculation of gallbladder ejection fraction. The gallbladder ejection fraction is 80%, which is within normal limits. IMPRESSION: No evidence of cystic duct or bile duct obstruction. Normal gallbladder ejection fraction of 80%. Reviewed, Interpreted and Dictated by Bob Valdez III, MD Transcribed by Becky Alvarado Authenticated and [facility]
== END ==
PROVIDERS: PCP Family Medicine; Visit Provider Nurse Practitioner Family
DX: R10.11 Right upper quadrant pain (principal); R11.0 Nausea
CPT/HCPCS: 78227; A9537; J2805

== ENCOUNTER → 2022-10-15 12:47 | Outpatient (CLI) | payer OTHER, SELFPAY ==
--- NOTE | 2022-10-15 12:51 | MR_ITS ---
FINAL REPORT CLINICAL HISTORY: LOW BACK PAIN. HX 2 BACK SURGERIES, LAST ONE 2011. BILATERAL LEG PAIN. FINDINGS: Multiplanar MR imaging of the lumbar spine was performed without and with contrast. On the sagittal T2-weighted images, disc degeneration is seen at several levels. There is disc space narrowing at L5-S1. The vertebral alignment is normal. There is no evidence of fracture. The conus has an unremarkable appearance. T12-L1: No significant canal stenosis or neuroforaminal narrowing is seen. L1-2: No significant canal stenosis or neuroforaminal narrowing is seen. L2-3: No significant canal stenosis or neuroforaminal narrowing is seen. L3-4: No significant canal stenosis or neuroforaminal narrowing is seen. L4-5: An annular bulge is present. No significant canal stenosis or neuroforaminal narrowing is seen. L5-S1: There is postoperative change on the right. There is an annular bulge, facet arthropathy, and vertebral osteophytes. There is a small central disc protrusion. There is soft tissue adjacent to the right S1 nerve root that enhances consistent with postoperative fibrosis. There is mild bilateral neural foraminal narrowing. IMPRESSION: Small central disc protrusion at L5-S1 with mild bilateral neural foraminal narrowing. Enhancing soft tissue adjacent to the right S1 nerve root at L5-S1 consistent with postoperative fibrosis. Reviewed, Interpreted and Dictated by Bob Valdez III, MD Transcribed by Lucho Hercules Authenticated and [facility]
== END ==
PROVIDERS: PCP Family Medicine; Visit Provider Nurse Practitioner Family
DX: M54.50 Low back pain, unspecified (principal)
CPT/HCPCS: 72158; 76376; A9576

== ENCOUNTER → 2022-12-05 15:29 | Outpatient (CLI) | payer OTHER, SELFPAY ==
--- NOTE | 2022-12-05 15:34 | XR_ITS ---
FINAL REPORT CLINICAL HISTORY: . Right middle finger caught in car door. FINDINGS: RIGHT FINGERS SERIES Two views of the right fingers were obtained. There is no acute fracture or dislocation. The joint spaces are preserved. There is no soft tissue abnormality. IMPRESSION: No acute abnormality. Reviewed, Interpreted and Dictated by Bob Valdez III, MD Transcribed by Robin Pineda Authenticated and [facility]
== END ==
PROVIDERS: PCP Family Medicine; Visit Provider Family Medicine
DX: S69.91XA Unspecified injury of right wrist, hand and finger(s), initial encounter (principal); M79.644 Pain in right finger(s)
CPT/HCPCS: 73140

== ENCOUNTER → 2022-12-26 16:20 | Outpatient (CLI) | payer OTHER, SELFPAY ==
--- NOTE | 2022-12-26 16:29 | XR_ITS ---
PROCEDURE INFORMATION: Exam: XR Right Scapula Exam date and time: 12/26/2022 4:32 PM Age: 42 years old Clinical indication: Pain; Shoulder; Right; Additional info: Right shoulder pain, decreased rom right shoulder TECHNIQUE: Imaging protocol: Radiologic exam of the right scapula. Complete exam. COMPARISON: CR XR CHEST 2V 06/29/2019 11:53 AM FINDINGS: Bones/joints: Normal. Soft tissues: Normal. IMPRESSION: No acute findings.
--- NOTE | 2022-12-26 16:29 | XR_ITS ---
PROCEDURE INFORMATION: Exam: XR Right Shoulder Exam date and time: 12/26/2022 4:32 PM Age: 42 years old Clinical indication: Pain; Shoulder; Right; Additional info: Right shoulder pain, decreased rom right shoulder TECHNIQUE: Imaging protocol: Radiologic exam of the right shoulder. Views: 2 or more views. COMPARISON: CR XR CHEST 2V 06/29/2019 11:53 AM FINDINGS: Bones/joints: No fractures. Glenohumeral alignment is normal. A.C. joint alignment is normal. Mild superior osteoarthritic spurring and ossification at the AC joint. No blastic or lytic lesions. Adjacent ribs are intact. Lungs: Visualized lung parenchyma is unremarkable. Pleural space: No visible pleural effusion or pneumothorax. Soft tissues: No gross soft tissue abnormalities. IMPRESSION: 1. No acute findings. 2. 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
== END ==
PROVIDERS: PCP Family Medicine; Visit Provider Family Medicine
DX: M25.511 Pain in right shoulder (principal); M25.611 Stiffness of right shoulder, not elsewhere classified
CPT/HCPCS: 73010; 73030

== ENCOUNTER 2023-07-17 20:12 | Outpatient (CLI) | payer OTHER, SELFPAY | END 2023-07-17 23:59 | LOC: LAB.DROPOF 20:13 | PROVIDERS: PCP Nurse Practitioner Family; Visit Provider Nurse Practitioner Family | DX: J02.9 Acute pharyngitis, unspecified (principal); B95.1 Streptococcus, group B, as the cause of diseases classified elsewhere | CPT/HCPCS: 87070 ==

== ENCOUNTER 2023-08-01 22:08 | Outpatient (CLI) | payer OTHER, SELFPAY | END 2023-08-01 23:59 | LOC: LAB.DROPOF 22:09 | PROVIDERS: PCP Family Medicine; Visit Provider Family Medicine | DX: J02.9 Acute pharyngitis, unspecified (principal) | CPT/HCPCS: 87070 ==

== ENCOUNTER 2025-03-15 09:02 | Outpatient (CLI) | payer OTHER, SELFPAY ==
--- NOTE | 2025-03-15 09:03 | XR_ITS ---
FINAL REPORT CLINICAL HISTORY: right elbow pain FINDINGS: AP, oblique, and lateral views of the right elbow were obtained. There is no prior exam for comparison. There is no acute fracture or dislocation. Joint space is preserved. There is no joint effusion or other soft tissue abnormality. IMPRESSION: No acute osseous abnormality of the right elbow. Reviewed, Interpreted and Dictated by Mellisa Villafana MD Transcribed by Tammi Barraza Authenticated and [facility]
== END 2025-03-15 23:59 | disposition home or self-care (01) ==
LOC: RAD 09:03
PROVIDERS: PCP Family Medicine; Visit Provider Physician Assistant
DX: M25.521 Pain in right elbow (principal)
CPT/HCPCS: 73080